=== PATIENT | female | born 1975 | race Caucasian/White ===

== ENCOUNTER → 2017-04-25 | Day surgery (SDC) | payer OTHER ==
[~2017-04-25] MED LIST: BUPIVACAINE/EPINEPHRINE 0.25% PF 30 ML VIAL INFIL ONE; DEXAMETHASONE SOD PHOS 4 MG/ML VIAL IV ONE; KETOROLAC TROMETHAMINE 30 MG/ML (IVP) VIAL IV PUSH ONE; LIDOCAINE HCL 1% PF 5 ML AMPULE OTHER ONE; MIDAZOLAM HCL 2 MG/2 ML VIAL ONE; ONDANSETRON HCL 4 MG/2 ML VIAL IV PUSH ONE; PROMETHAZINE INJ 25 MG/ML VIAL ONE; PROPOFOL 200 MG/20 ML AMP IV ONE
--- NOTE | 2017-04-25 21:27 | MP ---
cc: AUDELIA ROSARIO MD DATE OF SURGERY 04/25/2017 PREOPERATIVE DIAGNOSIS Menorrhagia, possible endometrial polyp. POSTOPERATIVE DIAGNOSIS Menorrhagia. SURGEON Audelia Rosaroi MD [employer] [place] staff. PROCEDURE PERFORMED Exam under anesthesia, hysteroscopy, dilation and curettage, endometrial ablation with NovaSure device. SPECIMEN endometrial curettes. ANESTHESIA General LMA. ESTIMATED BLOOD LOSS Minimal. IV FLUIDS 250 ml of lactated Ringer. URINE OUTPUT 25. COMPLICATIONS None. COUNTS Correct x3 INTRAOPERATIVE FINDINGS Uterus was approximately _10cm in size bimanual exam no adnexal masses appreciated. Uterus anteverted. 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 No documented history in the patient's chart. On hysteroscopy thickened endometrium. No polyps visualized. Curettage performed with a repeat hysteroscopy and no polyps visualized. The uterine cavity length sounded to 6 cm width 3.4 cm, ablation times 60 seconds. PROCEDURE IN DETAIL After reviewing informed consent the patient was taken to the operating room where general LMA was performed without complications. She was placed in dorsal lithotomy position in [facility]. Perineum was prepped and draped normal sterile fashion. Red rubber was used to drain the bladder and a bivalve speculum was placed in the vagina. Single tooth tenaculum was placed the anterior lip of the cervix. A paracervical block of Marcaine 0.25% with epinephrine was performed. The uterus sounded to 10 cm, the cervix to 4 cm. The cervix was dilated to accommodate the diagnostic hysteroscope. Cavity assessment was performed, intraoperative findings. The NovaSure device was introduced, a length of 6 cm and a width of 3.4 cm was used. The uterus passed the cavity assessment. The device was activated for 60 seconds at a power of 112. The NovaSure device was removed. Good catrachito was noted. The single tooth tenaculum was removed. Hemostasis was obtained with pressure. The speculum was removed. The patient was placed in the dorsal spine position. Anesthesia was reversed without complication. The patient will be sent a Valtrex prescription to the pharmacy for HSV lesions noted on today's exam. Audelia Rosario MD PE/JEISON /12:21 PM /8:59 PM VINOD
== END | disposition home or self-care (01) ==
LOC: ESDC 09:54
PROVIDERS: ATTEND Obstetrics & Gynecology
DX: N92.0 Excessive and frequent menstruation with regular cycle (principal)
CPT/HCPCS: 00952; 58563; 88305; J1100; J1885; J2250; J2405; J2550; J3010